=== PATIENT | male | born 1960 | race Caucasian/White ===

== ENCOUNTER 2019-11-18 16:52 | Emergency (ER) | payer MEDICARE, OTHER ==
[~2019-11-18] VITALS: Ht 165.1 cm; Wt 56.7 kg
--- NOTE | 2019-11-18 20:46 | NUR ---
pt brought to ct
[2019-11-18] MEDS ORDERED: BISACODYL SUPP (10 MG) 10 MG/SUPP.RECT SUPP.RECT RC ONE ×3 (20:56→21:10)
[2019-11-18] MEDS ORDERED: IV NS 0.9% 1,000 ML BAG IV ONE (21:00)
--- NOTE | 2019-11-18 21:16 | NUR ---
blood drawn and sent to lab.
--- NOTE | 2019-11-18 21:25 | NUR ---
pt bib private transport from home c/o bowel impaction. pt states that he has been having trouble having a bowel movement for days. [id number]. no sob. breathing evenly and unlabored. connected to monitor.
[2019-11-18 21:28] LABS: BASOPHILS % (AUTO) 0.5 % (0.0-2.0); EOSINOPHILS % (AUTO) 0.5 % (0.0-6.0); HEMATOCRIT 47 % (39-51); HEMOGLOBIN 15.9 g/dL (13.5-17.5); LYMPHOCYTES # (AUTO) 0.8 /CMM (0.8-4.8); LYMPHOCYTES % (AUTO) 10.9 % (20.0-44.0); MEAN CORPUSCULAR HGB CONC 34 g/dl (31.0-36.0); MEAN CORPUSCULAR VOLUME 96 fL (80-96); MONOCYTES # (AUTO) 0.3 /CMM (0.1-1.30); MONOCYTES % (AUTO) 3.9 % (2.0-12.0); NEUTROPHILS # (AUTO) 6.1 /CMM (1.8-8.9); NEUTROPHILS % (AUTO) 84.2 % (43.0-81.0); PLATELET COUNT (AUTO) 320 /CMM (150-450); RED BLOOD CELL COUNT(AUTO) 4.94 MIL/uL (4.5-6.0); WHITE BLOOD COUNT (AUTO) 7.3 K/uL (4.3-11.0)
[2019-11-18 21:35] LABS: CALCIUM, SERUM 9.9 mg/dL (8.5-10.1); CREATININE 0.8 mg/dL (0.6-1.3); POTASSIUM 3.8 mmol/L (3.5-5.1)
[2019-11-18 21:42] LABS: ALBUMIN 4.5 g/dL (3.4-5.0); BILIRUBIN,DIRECT 0.1 mg/dL (0.0-0.2); BILIRUBIN,TOTAL 0.4 mg/dL (0.2-1.0); TOTAL PROTEIN, SERUM 8.7 g/dL (6.4-8.2)
--- NOTE | 2019-11-18 22:13 | NUR ---
[facility] ETA [id number] TRIP#[id number]
--- NOTE | 2019-11-18 22:24 | NUR ---
Patient discharged to home in stable condition. Written and verbal after care instructions given. Patient verbalizes understanding of instruction. Prescriptions given and explained to patient.
--- NOTE | 2019-11-18 23:06 | NUR ---
[facility]SPORT TEAM AT BEDSIDE, REPORT GIVEN FOR KYLEE. AND TRANSFER RESPONSIBILITIES TO SEND PATIENT HOME.
[2019-11-18 23:07] VITALS: BP 128/73
== END 2019-11-18 23:07 | disposition home or self-care (01) ==
LOC: ER 16:56
DX: K59.00 Constipation, unspecified (principal); E86.0 Dehydration; K94.03 Colostomy malfunction; F32.9 Major depressive disorder, single episode, unspecified; F41.9 Anxiety disorder, unspecified; G62.9 Polyneuropathy, unspecified
CPT/HCPCS: 36415; 74176; 80048; 80076; 83690; 85025; 96360; 99284; J7030 ×3